=== PATIENT | female | born 1990 | race Caucasian/White ===

== ENCOUNTER 2018-02-28 21:39 | Emergency (ER) | payer SELFPAY ==
[2015-07-24 07:31] VITALS: BMI 31.0
[~2018-02-28 21:39] MED LIST: DOXYCYCLINE HY100 M2 PO; HYDROCODON-ACE1 EAC7 PO
== END 2018-02-28 23:10 | disposition home or self-care (01) ==
LOC: D.ER 21:39
DX: S40.012A Contusion of left shoulder, initial encounter (principal); W19.XXXA Unspecified fall, initial encounter; Y93.89 Activity, other specified; Y92.019 Unspecified place in single-family (private) house as the place of occurrence of the external cause; S43.402A Unspecified sprain of left shoulder joint, initial encounter; F17.200 Nicotine dependence, unspecified, uncomplicated

== ENCOUNTER 2018-03-04 19:21 | Emergency (ER) | payer SELFPAY ==
[~2018-03-04] VITALS: Ht 165.1 cm; Wt 77.3 kg
[2018-03-04 19:27] VITALS: BP 138/69; Ht 165.1 cm; Wt 77.3 kg
[2018-03-04] MEDS ORDERED: MUSCLE RELAXER (19:29)
== END 2018-03-04 21:20 | disposition home or self-care (01) ==
LOC: D.ER 19:21
DX: M25.512 Pain in left shoulder (principal); M54.5 Low back pain; Z91.81 History of falling

== ENCOUNTER 2018-12-16 00:25 | Emergency (ER) | payer SELFPAY ==
[~2018-12-16] VITALS: Ht 165.1 cm; Wt 75.0 kg
[~2018-12-16 00:25] MED LIST changes: +MUSCLE RELAXER
[2018-12-16 00:43] VITALS: BP 140/100; Ht 165.1 cm; Wt 75.0 kg
[2018-12-16] MEDS ORDERED: CELEXA10 MG PO (01:07)
== END 2018-12-16 01:18 | disposition home or self-care (01) ==
LOC: D.ER 00:25
DX: F32.9 Major depressive disorder, single episode, unspecified (principal)

== ENCOUNTER 2019-03-12 18:53 | Emergency (ER) | payer MEDICAID ==
[~2019-03-12] VITALS: Ht 165.1 cm; Wt 72.7 kg
[~2019-03-12 18:53] MED LIST changes: +CELEXA10 MG PO
[2019-03-12 18:57] VITALS: Ht 165.1 cm; Wt 72.7 kg
[2019-03-12 20:41] VITALS: BP 114/75
== END 2019-03-12 20:43 | disposition left against medical advice (07) ==
LOC: D.ER 18:53
DX: T82.9XXA Unspecified complication of cardiac and vascular prosthetic device, implant and graft, initial encounter (principal)

== ENCOUNTER 2019-03-14 00:01 | Inpatient (IN) | payer MEDICAID ==
[~2019-03-14] VITALS: Ht 165.1 cm; Wt 70.1 kg
[2019-03-14] VITALS (27 sets, daily range): BP systolic 84–147; BP diastolic 31–110; BMI 26.0
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
--- NOTE | 2019-03-14 00:06 | NUR ---
RG IN PLACE UPON ARRIVAL.
--- NOTE | 2019-03-14 00:09 | NUR ---
PT INTUBATED WITH SIZE 7 ETT 24 AT [facility] BY ADELINE VIVAR
[2019-03-14] MEDS ORDERED: CIPROFLOXACIN750 MG PO (00:31)
[2019-03-14] MEDS ORDERED: BUSPAR5 MG PO (00:31)
[2019-03-14] MEDS ORDERED: LOVENOX40 MG/0.4 SC (00:32)
[2019-03-14] MEDS ORDERED: NEURONTIN 300300 MG PO (00:32)
[2019-03-14] MEDS ORDERED: COLACE100 MG PO (00:32)
[2019-03-14] MEDS ORDERED: MIDODRINE HCL10 MG PO (00:33)
[2019-03-14] MEDS ORDERED: DAKIN'S 0.25%480 ML TOPICAL (00:35)
[2019-03-14] MEDS ORDERED: TRAZODONE HCL150 MG PO (00:35)
[2019-03-14] MEDS ORDERED: UNASYN (00:35)
[2019-03-14] MEDS ORDERED: CELEXA40 MG PO (00:36)
[2019-03-14 01:01] LABS: BASOPHILS 0.1 % (0-2); EOSINOPHILS 0.6 % (0-7); HEMATOCRIT 29.5 % (36.0-48.0); HEMOGLOBIN 9.3 g/dL (12-16); IMMATURE GRANULOCYTES 0.5 % (0-5); LYMPHOCYTES 12.5 % (15-50); MCH 24.3 pg (26.0-34.0); MCHC 31.5 g/dL (31.0-37.0); MCV 77.2 fL (80.0-100.0); MEAN PLATELET VOLUME 8.8 fL (7.4-10.4); MONOCYTES 2.8 % (2-11); NEUTROPHILS 83.5 % (40-80); PLATELET COUNT 576 10x3/uL (130-400); RBC 3.82 10x6/uL (4.00-5.40); RDW 15.4 % (11.5-14.5); WBC 19.1 10x3/uL (4.8-10.8)
[2019-03-14 01:05] LABS: APTT 31.6 SECONDS (22.8-39.4); INR 1.22 (0.85-1.17); PROTIME 14.9 SECONDS (11.6-15.0)
[2019-03-14 01:14] LABS: ALBUMIN 2.5 g/dL (3.4-5.0); ALKALINE PHOSPHATASE 91 U/L (46-116); ALT (SGPT) 30 U/L (10-68); BILIRUBIN - TOTAL 0.29 mg/dL (0.2-1.3); CALC OSMOLALITY 283 mosm/kg (275-300); CALCIUM 9.2 mg/dL (8.5-10.1); CARBON DIOXIDE 21.3 mmol/L (21.0-32.0); CHLORIDE - SERUM 104 mmol/L (98-107); CREATININE - SERUM 0.6 mg/dL (0.6-1.3); GLUCOSE 170 mg/dL (74-106); POTASSIUM - SERUM 4.3 mmol/L (3.5-5.1); PROTEIN - SERUM 7.7 g/dL (6.4-8.2); SODIUM 140 mmol/L (136-145); UREA NITROGEN 15 mg/dL (7-18); eGFR NON AFRICAN AMERICAN > 90 mL/min (90-120)
[2019-03-14 01:24] LABS: CREATINE KINASE 56 UL (21-215); TROPONIN-I < 0.017 ng/mL (0.000-0.060)
--- NOTE | 2019-03-14 01:55 | NUR ---
CALLED REPORT TO LONNIE DOMINGUEZ
[2019-03-14 02:49] LABS: APPEARANCE CLEAR (CLEAR); BILIRUBIN NEGATIVE (NEGATIVE); COLOR YELLOW (YELLOW); GLUCOSE NEGATIVE (NEGATIVE); KETONE NEGATIVE (NEGATIVE); NITRITE NEGATIVE (NEGATIVE); PROTEIN NEGATIVE (NEGATIVE); UROBILINOGEN NORMAL (NORMAL)
--- NOTE | 2019-03-14 03:10 | NUR ---
RECEIVED PT TO ROOM 2304 ACCOMPANIED BY ER STAFF AND RT X 2 , ICU MONITORS ESTABLISHED WITH ALARMS ON, HR SR ON CM, PT ABLE TO NOD HEAD TO YES/NO QUESTIONS, BILAT SOFT WRIST RESTRAINTS INTACT, 7.0 ETT 24 AT LIPLINE, 50% FIO2. WILL MONITOR.
--- NOTE | 2019-03-14 05:40 | NUR ---
NO VISITORS PRESENT AT THIS TIME, VSS, POSITIONED FOR COMFORT.
--- NOTE | 2019-03-14 07:00 | NUR ---
AWAKE ETT SECURE TO VENT. MOVING ARMS ALL OVER, TRYING TO TALK. NOT COOPERATIVE. PICC RIGHT UPPER ARM INFUSING WITH DIPRIVAN AT 15 MCG/KG/MIN. NS AT 100 ML HOUR. RG CATH CLEAR YELLOW URINE. FOOT DROP NOTED IN LOWER LEGS. FINGERS DRAWN UP, BUT MOVING ARMS UP AND DOWN AND TOWARD FACE. TRIED TO GIVEN EMOTIONAL SUPPORT TO CALM HER DOWN.REPOSITIONED, LEGS ELEVATED ON PILLOWS.
[2019-03-14] MEDS ORDERED: VITAMIN C WIT1000 MG PO (07:53)
[2019-03-14] MEDS ORDERED: ZINC-220220 MG PO (07:53)
--- NOTE | 2019-03-14 09:00 | NUR ---
MOTHER, BOYFRIEND, AND SISTER HERE, UPGIVEN AND HISTORY OBTAINED FROM MOTHER. MOTHER HAS TO TAKE CARE OF PATIENTS 3 CHILDREN. INCREASING DIPIRVAN TO TRY AND CALM PATIENT DOWN. STILL TRYING TO TALK MOVING ARMS UP AND DOWN AND GAGGING ON ETT. WILL CALM DOWN FOR VERY SHORT PERIODS OF TIME. MOTHER CRYING EMOTIONAL SUPPORT TO FAMILY. PATIENT WANTS TO GO HOME. MOTHER SAYS SHE CAN NOT COME HOME. SHE TRIED TWICE NOW TO BRING HER HOME. PATIENT RETURNED HOME ON FRIDAY FROM [facility], [place], [facility]. MOTHER AND SISTER WERE UNABLE TO USE PICC LINE AND GIVEN ABT. HOME HEALTH TO START ON FRIDAY. PATIENT REPOSITIONED. VERY ACTIVE WITH ARMS. CAN MOVE FINGERS OR LEGS.
--- NOTE | 2019-03-14 09:30 | NUR ---
TALKED WITH MOTHER ABOUT DNR, SHE HAS BEEN TALKED TO BEFORE ABOUT THIS, SHE TALKED WITH PATIENT ABOUT IT.
--- NOTE | 2019-03-14 11:00 | NUR ---
REPOSITIONED. DR. STEELE HERE ORDERS NOTED. STILL BECOME VERY ANXIOUS. HYPERACTIVE MOVING ARMS UP AND DOWN. WANTS TO GO HOME, WANTS TUBE OUT GAGGING ON TUBE. WHEN STIMULATED, WILL REST WITH ENCOURAGMENT AND LEFT ALONE.
--- NOTE | 2019-03-14 13:00 | NUR ---
DR. MICHEL HERE UPDATE GIVEN ON PATIENT. REPOSITIONED PATIENT AGAIN BECOMES VERY AGITATED, MOVING ARMS UP AND DOWN. TALKING WANTS TUBE OUT, WANTS TO GO HOME. DR. MICHEL EXPLAINED THAT WE NEED TO FIND OUT WHY SHE TURNED BLUE, NEEDS TO SOME TEST BEFORE ATTEMPTED WEANING AND REMOVING THE ETT. PATIENT JUST KEEPS MOVING CONTINOUSLY AND GAGGING ON TUBE. ORDERS RECEIVED FOR VERSE GTT TO CALM PATIENT DOWN.
--- NOTE | 2019-03-14 13:30 | NUR ---
WAITING ON VERSE GTT. PATIENT CONTINUES GETTING MORE AGITATED. DR. MICHEL ORDER VERSED 2 MG NOW.
--- NOTE | 2019-03-14 15:00 | NUR ---
COMPLETE HIBCLENS BATH GIVEN. WITH COMPLETE LINEN CHANGE. DRESSING CHANGE TO COCCYX. SMALL AMOUNT BROWN DRAINAGE NOTED ON DRESSING. WOUND PINK NO FOUL ODOR NOTED. WOUND CLEAN WITH NS. PACKED WITH KERLIX WITH NS ON 4X4 APPLIED. SECURE WITH TAPE. PATIENT TOLERATES POORLY. REPOSITIONED SUCTION. ORAL CARE DONE. BECOMES VERY AGITATED WHEN REPOSITIONE. INCREASED VERSE GTT.
--- NOTE | 2019-03-14 16:00 | NUR ---
BOYFRIEND HERE. PATIENT BECOMING AGITATED. KEEPS TRYING TO TALK HER THROAT IS SORE. INSTRUCTED TO QUIT TALKING. BOYFRIEND THINKS THIS HAPPEN BECAUSE PATIENT IS CURRENTLY SMOKING. VERSED INCREASED.
--- NOTE | 2019-03-14 17:22 | NUR ---
PATIENT RESTING CALMLY. PULMOCARE STARTED PER OG AT 10 ML HOUR WITH 100 ML WATER Q [address] MICHEL ORDERS. PLACEMENT CHECKED PRIOR TO STARTING TUBE FEEDING WITH AUDIBLE AIR IN ABD.
--- NOTE | 2019-03-14 19:00 | NUR ---
REPORT RECEIVED, CARE ASSUMED. PT IS RESTING IN BED INTUBATED AND SEDATED. INITIAL ASSESSMENT COMPLETED, SEE FLOWSHEET FOR DETAILS. PT REPOSITIONED FOR COMFORT. ORAL CARE PREFORMED. NO SIGNS OF ACUTE DISTRESS. WILL CONTINUE TO MONITOR.
--- NOTE | 2019-03-14 21:00 | NUR ---
PT IS RESTING IN BED INTUBATED AND SEDATED. PT REPOSITIONED FOR COMFORT, ORAL CARE PREFORMED. NO SIGNS OF ACUTE DISTRESS. WILL CONTINUE TO MONITOR.
--- NOTE | 2019-03-14 23:00 | NUR ---
REASSESSMENT COMPLETED, SEE FLOWSHEET FOR DETAILS. PT IS RESTING IN BED INTUBATED AND SEDATED. PT REPOSITIONED FOR COMFORT. ORAL CARE PREFORMED. NO SIGNS OF ACUTE DISTRESS. WILL CONTINUE TO MONITOR.
[2019-03-15] VITALS (24 sets, daily range): BP systolic 113–146; BP diastolic 71–95; Ht 165.1 cm; Wt 70.1 kg
--- NOTE | 2019-03-15 01:00 | NUR ---
PT IS LAYING IN BED INTUBATED AND SEDATED. PT REPOSITIONED FOR COMFORT. ORAL CARE PREFORMED. NO SIGNS OF ACUTE DISTRESS. WILL CONTINUE TO MONITOR.
--- NOTE | 2019-03-15 03:00 | NUR ---
REASSESSMENT COMPLETED, SEE FLOWSHEET FOR DETAILS. PT IS LAYING IN BED INTUBATED AND SEDATED. PT REPOSITIONED FOR COMFORT. ORAL CARE PERFORMED. NO FURTHER NEEDS NOTED AT THIS TIME. NO SIGNS OF ACUTE DISTRESS. WILL CONTINUE TO MONITOR.
[2019-03-15 04:14] LABS: BASOPHILS 0 % (0-2); EOSINOPHILS 0 % (0-7); HEMATOCRIT 26.6 % (36.0-48.0); HEMOGLOBIN 8.3 g/dL (12-16); IMMATURE GRANULOCYTES 0.4 % (0-5); LYMPHOCYTES 14.3 % (15-50); MCH 24.3 pg (26.0-34.0); MCHC 31.2 g/dL (31.0-37.0); MCV 77.8 fL (80.0-100.0); MEAN PLATELET VOLUME 8.8 fL (7.4-10.4); MONOCYTES 4.6 % (2-11); NEUTROPHILS 80.7 % (40-80); PLATELET COUNT 518 10x3/uL (130-400); RBC 3.42 10x6/uL (4.00-5.40); RDW 15.1 % (11.5-14.5)
[2019-03-15 04:21] LABS: WBC 11.4 10x3/uL (4.8-10.8)
[2019-03-15 04:39] LABS: ALBUMIN 2.4 g/dL (3.4-5.0); ALKALINE PHOSPHATASE 72 U/L (46-116); ALT (SGPT) 23 U/L (10-68); BILIRUBIN - TOTAL 0.22 mg/dL (0.2-1.3); C-REACTIVE PROTEIN 5.2 mg/dL (0.0-0.9); CALC OSMOLALITY 280 mosm/kg (275-300); CALCIUM 9.1 mg/dL (8.5-10.1); CARBON DIOXIDE 23.9 mmol/L (21.0-32.0); CHLORIDE - SERUM 105 mmol/L (98-107); GLUCOSE 136 mg/dL (74-106); POTASSIUM - SERUM 3.8 mmol/L (3.5-5.1); PROTEIN - SERUM 7.3 g/dL (6.4-8.2); SODIUM 139 mmol/L (136-145); UREA NITROGEN 14 mg/dL (7-18)
[2019-03-15 04:52] LABS: CREATININE - SERUM 0.3 mg/dL (0.6-1.3); eGFR NON AFRICAN AMERICAN > 90 mL/min (90-120)
--- NOTE | 2019-03-15 05:00 | NUR ---
PT IS RESTING IN BED INTUBATED AND SEDATED. PT REPOSITIONED FOR COMFORT. ORAL CARE PREFORMED. NO SIGNS OF ACUTE DISTRESS. WILL CONTINUE TO MONITOR.
--- NOTE | 2019-03-15 07:00 | NUR ---
PT RESTING IN BED C CALL URIBE IN REACH. SEDATED ON DIPRIVAN AND VERSED. WAKES TO VOICE. ON VENTILATOR PER ORDERED SETTINGS. RESTRAINTS IN PLACE. SCAR TO LEFT HIP AND LEFT FOOT. OLD TRACHE SCAR. COLOSTOMY BAG IN PLACE. TUBE FEED THROUGH OGT INFUSING AT 30 ML/HR. NS AT 100ML/HR. ALL IV FLUID GOING THROUGH RIGHT PICC LINE. HR 42 SINUS ADWOA. BP STABLE. VSS. TURNED TO LEFT SIDE. WILL CONTINUE TO MONITOR
--- NOTE | 2019-03-15 08:29 | NUR ---
NURSE ASPIRATED 240 CC TUBEFEED AND WATER FROM OGT. DISPOSED OF IN SINK. AUSCULTATED FOR PLACEMENT VERIFICATION. ADMINISTERED PO MEDS DOWN OGT AND TURNED OFF FEED.
--- NOTE | 2019-03-15 09:00 | NUR ---
TURNED OFF SEDATION PER ORDERS BY DR. WOO. MONITORING PATIENT. VSS
--- NOTE | 2019-03-15 11:00 | NUR ---
PT AGITATED ON VENT IWTH NO SEDATION PER ORDERS. TRIED CALMING PATIENT VERBALLY AND EXPLAINED PLAN TO POSSIBLY EXTUBATE TODAY
--- NOTE | 2019-03-15 13:00 | NUR ---
PT ON PRESSURE SUPPORT TRIALS OFF SEDATION. VSS
[2019-03-15 13:59] LABS: % SATURATION 12 % (15-55); IRON 37 ug/dl (35-150); TOTAL IRON BIND CAPACITY 287 ug/dl (260-445); UNSAT IRON BIND CAPACITY 250 ug/dl (150-375)
--- NOTE | 2019-03-15 15:08 | NUR ---
GAVE PATIENT FULL BED BATH AND CHANGED SACRAL WOUND WITH WOUND CARE NURSE. ALSO CHANGED OUT COLOSTOMY BAG FECES WERE DRAINING UNDER ADHESIVE TO SKIN. PT VERY AGITATED WITHOUT SEDATION ON VENTILATOR. RT STARTED PRESSURE SUPPORT EXTUBATION TESTS WHEN BATH WAS FINISHED. ALL LINENS WERE CHANGED
--- NOTE | 2019-03-15 15:32 | NUR ---
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 Kerlix moistened with saline was packed loosely in wound. It was covered with dry 4x4s and ABD pad and secured with medipore tape. Right knee has a scabbed area measuring 2cm x 2cm. This was left open to air. Pt is on an air overlay mattress. She is being turned/repositioned q 2 hours using wedges for support. Wound care will continue monitoring.
--- NOTE | 2019-03-15 16:08 | NUR ---
PT EXTUBATED AT THIS TIME. PLACED ON NC AT 2L. O2 SAT 96%. PERFORMED ORAL CARE. PT IS HOARSE AND EMOTIONAL. FAMILY IN ROOM
--- NOTE | 2019-03-15 16:15 | NUR ---
EXTUBATED TO 4L NASAL CANNULA SPO2 96%
--- NOTE | 2019-03-15 17:00 | NUR ---
RNANKIT DID BED SIDE SWALLOW EVAL WITH APPLE SAUCE AND PUDDING. PT TOLERATED WELL.
--- NOTE | 2019-03-15 19:00 | NUR ---
REPORT RECEIVED, CARE ASSUMED. PT IS LAYING IN BED AT THIS TIME WATCHING TV. INITIAL ASSESMENT COMPLETED, SEE FLOWSHEET FOR DETAILS. PT STATES THAT SHE HAS BAD ANXIETY ATTACKS AND THAT IS WHAT CAUSES HER TO HAVE ISSUES WITH BREATHING CAUSING HER TO BE INTUBATED. PAGED APOLINAR DEL TORO REGARDING THIS ISSUE AND REQUESTED SOMETHING TO GIVE HER IN THE CASE OF AN ACUTE ATTACK. ORDERS RECEIVED. PT REPOSITIONED FOR COMFORT. NO FURTHER NEEDS NOTED. WILL CONTINUE TO MONITOR.
--- NOTE | 2019-03-15 21:00 | NUR ---
PT IS RESTING IN BED WITH FAMILY AT BEDSIDE. PT REPOSITIONED FOR COMFORT. NO SIGNS OF ACUTE DISTRESS NOTED. WILL CONTINUE TO MONITOR.
--- NOTE | 2019-03-15 23:00 | NUR ---
REASSESSMENT COMPLETED, SEE FLOWSHEET FOR DETAILS. PT IS RESTING IN BED. PT REPOSITIONED FOR COMFORT. NO SIGNS OF ACUTE DISTRESS NOTED. WILL CONTINUE TO MONITOR.
[2019-03-16] VITALS (14 sets, daily range): BP systolic 73–175; BP diastolic 34–95
--- NOTE | 2019-03-16 01:00 | NUR ---
PT IS RESTING IN BED WITH EYES OPEN WATCHING TV. PT REPOSITIONED FOR COMFORT. NO SIGNS OF ACUTE DISTRESS NOTED. WILL CONTINUE TO MONITOR.
--- NOTE | 2019-03-16 03:00 | NUR ---
REASSESSMENT COMPLETED, SEE FLOWSHEET FOR DETAILS. PT IS RESTING IN BED WITH EYES CLOSED AT THIS TIME. PT REPOSITIONED FOR COMFORT. NO SIGNS OF ACUTE DISTRESS. WILL CONTINUE TO MONITOR.
--- NOTE | 2019-03-16 05:00 | NUR ---
PT IS RESTING IN BED WATCHING TV AT THIS TIME. NO SIGNS OF ACUTE DISTRESS. REPOSITIONED PT FOR COMFORT. WILL CONTINUE TO MONITOR.
--- NOTE | 2019-03-16 07:20 | NUR ---
RECEIVED PT. PT AWAKE AND VISIBLE ANXIETY. BREATHING QUICKLY. RATES 30-40S. RT IN WITH PT NOW. XANAX GIVEN AROUND 0500. PT HAS RG, COLOSTOMY, AND RIGHT PICC. SHE WEARS O2 AT 2L WHEN SHE NEEDS IT. 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 IS ABLE TO MOVE ARMS. PT HAS A PRESSURE ULCER TO HIS COCCYX. WILL CONTINUE TO MONITOR.
--- NOTE | 2019-03-16 08:27 | NUR ---
RESP RATE HAS DECREASED TO 20S. HR HAS COME DOWN TO 70S-80S. PT IS NO LONGER HAVING A "PANIC ATTACK." WILL CONTINUE TO MONITOR.
--- NOTE | 2019-03-16 09:45 | NUR ---
PT HAS TRANSFER ORDERS FOR THE FLOOR. ASKED DR BANDA TO RESTART HER HOME MEDS TO HELP WITH HER ANXIETY. PT HAS NO OTHER QUESTIONS OR NEEDS AT THIS TIME.
--- NOTE | 2019-03-16 11:27 | NUR ---
PT RESTING QUIETLY. VSS. WILL CONTINUE TO MONITOR.
--- NOTE | 2019-03-16 12:51 | MORECARE ---
CASE MANAGEMENT DISCHARGE SUMMARY PATIENT: DYLAN MCKENZIE UNIT: [id number] ADM DATE: 03/14/19 AGE: 28 : [birth year] SEX: F ROOM/BED: D.2304 AUTHOR: DOUG MOSQUERA PHYSICIAN: REFERRING PHYSICIAN: ANDERSON STEELE MD DATE OF SERVICE: 03/16/19 Discharge Plan Patient Name: DYLAN MCKENZIE Facility: [facility]:[place] : 1990 Planned Disposition: Home with Infusion Therapy Services Anticipated Discharge Date: Discharge Date: Expected LOS: Initial Reviewer: [email or web address] Initial Review Date: 03/16/2019 Generated: 03/16/19 1:51 pm DCP- Discharge Planning Updated by [email or web address]: Lakeshia Quinones on 03/14/19 2:[address] CASE MANAGEMENT CONSULT OBTAINED. THE PATIENT IS INTUBATED, ON VENTILATOR AND SEDATED. WILL BE STARTING A VERSED DRIP FOR ACUTE AGITATION. IVAB, IV STEROIDS, DUONEDS. MOTHER TO THE PATIENT HAD BEEN AT THE BEDSIDE. PATIENT HAS 3 CHILDREN AGES 5, 9, 10 YEARS OLD. TODAY IS THE 5 YEAR OLD'S BIRTHDAY. PATIENT JUST DISCHARGED HOME FROM [facility] FRIDAY. HOME HEALTH HAD BEEN ARRANGED. MOTHER TO THE PATIENT STATES THEY HAVE TRIED TO HAVE THE PATIENT HOME 2 TIMES. STATES SHE CANNOT RETURN TO THE HOME SETTING. CM WILL FOLLOW TO ASSIST. Patient Name: DYLAN MCKENZIE Page [id number] at 1251 All edits/amendments must be made on the electronic document DICTATION DATE: 03/16/19 1251 HUMAN SERVICES MANAGER: SRAVAN 03/16/19 1251 RPT#: [id number] DC DATE: STATUS: ADM IN [facility] [address] [place] [address] END OF REPORT
--- NOTE | 2019-03-16 13:00 | MORECARE ---
CASE MANAGEMENT DISCHARGE SUMMARY PATIENT: DYLAN DEMPSEY UNIT: [id number] ADM DATE: 03/14/19 AGE: 28 : [birth year] SEX: F ROOM/BED: D.2304 AUTHOR: DOUG MOSQUERA PHYSICIAN: REFERRING PHYSICIAN: ANDERSON STEELE MD DATE OF SERVICE: 03/16/19 Discharge Plan Patient Name: DYLAN DEMPSEY Facility: [facility]:[place] : 1990 Planned Disposition: Home with Infusion Therapy Services Anticipated Discharge Date: Discharge Date: Expected LOS: Initial Reviewer: [email or web address] Initial Review Date: 03/16/2019 Generated: 03/16/19 2:00 pm DCP- Discharge Planning Updated by [email or web address]: Lakeshia Quinones on 03/14/19 2:[address] CASE MANAGEMENT CONSULT OBTAINED. THE PATIENT IS INTUBATED, ON VENTILATOR AND SEDATED. WILL BE STARTING A VERSED DRIP FOR ACUTE AGITATION. IVAB, IV STEROIDS, DUONEDS. MOTHER TO THE PATIENT HAD BEEN AT THE BEDSIDE. PATIENT HAS 3 CHILDREN AGES 5, 9, 10 YEARS OLD. TODAY IS THE 5 YEAR OLD'S BIRTHDAY. PATIENT JUST DISCHARGED HOME FROM THE [facility] FRIDAY. HOME HEALTH HAD BEEN ARRANGED. MOTHER TO THE PATIENT STATES THEY HAVE TRIED TO HAVE THE PATIENT HOME 2 TIMES. STATES SHE CANNOT RETURN TO THE HOME SETTING. CM WILL FOLLOW TO ASSIST. DCPIA - Discharge Planning Initial Assessment Updated by [email or web address]: Lluvia Fitch on 03/16/19 12:53 pm * Is the patient Alert and Oriented? Yes * How many steps to enter\exit or inside your home? * PCP [place] * Pharmacy [facility] * Preadmission Environment Home with Family * ADLs Total Dependent * Other Equipment Hospital Bed, miranda lift, manual w/c, nebulizer (no updraft medications), should have electric wheelchair in 3 months, shower chair * List name and contact numbers for known caregivers / representatives who currently or will assist patient after discharge: Nancy Dempsey - mother- [phone] * Verbal permission to speak to the caregivers and representatives has been obtained from the patient. Yes * Community resources currently utilized Home Health * Please name any agencies selected above. [facility] was to admit 03/15 - [phone] [facility] [phone] * Additional services required to return to the preadmission environment? No * Can the patient safely return to the preadmission environment? Yes * Has this patient been hospitalized within the prior 30 days at any hospital? Yes Last DP export: 03/16/19 11:51 a Patient Name: DYLAN DEMPSEY Page 61083 at 1300 All edits/amendments must be made on the electronic document DICTATION DATE: 03/16/19 1300 CAD DEVELOPER: SRAVAN 03/16/19 1300 RPT#: [id number] DC DATE: STATUS: ADM IN [facility] [address] [place] [address] END OF REPORT
--- NOTE | 2019-03-16 13:30 | NUR ---
NO CHANGES IN PT STATUS. TRANSFER ORDERS. VSS. PT REQUESTED FAN. GOT ONE. NOW RESTING QUIETLY. WILL CONTINUE TO MONITOR.
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
--- NOTE | 2019-03-16 15:40 | NUR ---
PT SLEEPING. VSS. PT REPOSITIONED. RG IN PLACE. COLOSTOMY IN PLACE.
[2019-03-16 16:09] LABS: FOLATE (FOLIC ACID) - SERUM >20.0 ng/mL (>3.0)
--- NOTE | 2019-03-16 16:31 | NUR ---
REPORT CALLED TO ALBERTO OVIEDO, ON MED 3. TO GO TO ROOM 1208.
--- NOTE | 2019-03-16 17:38 | NUR ---
TRANSFERED TO ROOM 210 FROM ICU. ALERT AND ORIENTED. HANDS CONTRACTED. CAN'T MOVE LEGS. CL IN REACH. R PICC. COLOSTOMY. WOUND TO COCCYX WITH WET TO DRY DRESSING PER NURSE REPORTED.
--- NOTE | 2019-03-16 19:25 | NUR ---
REPORT RECIEVED AND ROUNDING COMPLETE. PT LAYING IN BED IN SUPINE POSITION WITHT HE HEAD OF HER BE ELEVATED. PT IS ON ROOM AIR, PT HAS NO S/SX OF DISTRESS AT THIS TIME. PT DID ASK ABOUT DRESSING CHANGES FOR HER SORE ON HER COCCYX.I TOLD HER I WILL CHECK HER CHART AND WE CAN GO FROM THERE. PT STATES SHE HAS NO OTHER NEEDS AT THIS TIME. CALL LIGHT WITHIN REACH AND BED IN LOWEST POSITION.
--- NOTE | 2019-03-16 21:00 | NUR ---
CLOTH MEASURER REPORTED PT'S B/P WAS LOW. CHARGE NURSE KO DOMINGUEZ CHECKED MANNUALLY AND REPORTED 78/28. CALLED KATEY JIANG AND INFORMED HIM OF WHAT WAS GOING ON HE SAID TO GIVE HER A 500CC BOLUS AND HE WOULD COME AND SEE HER.
--- NOTE | 2019-03-16 21:30 | NUR ---
LAB CALLED AND REPORTED PT'S K+ WAS 2.3 PUT IN CALL TO KATEY COOK FOR INSTRUCTIONS BECAUSE PT IS NOT ON ELECTROLYTE PROTOCOL.
[2019-03-16 21:44] LABS: BASOPHILS 0.1 % (0-2); EOSINOPHILS 0.1 % (0-7); HEMATOCRIT 29.9 % (36.0-48.0); HEMOGLOBIN 9.2 g/dL (12-16); IMMATURE GRANULOCYTES 0.5 % (0-5); LYMPHOCYTES 26.3 % (15-50); MCH 23.8 pg (26.0-34.0); MCHC 30.8 g/dL (31.0-37.0); MCV 77.3 fL (80.0-100.0); MEAN PLATELET VOLUME 8.9 fL (7.4-10.4); PLATELET COUNT 466 10x3/uL (130-400); RBC 3.87 10x6/uL (4.00-5.40); RDW 15.6 % (11.5-14.5)
[2019-03-16 21:47] LABS: WBC 14.4 10x3/uL (4.8-10.8)
[2019-03-16 21:57] LABS: CARBON DIOXIDE 21.3 mmol/L (21.0-32.0); CHLORIDE - SERUM 109 mmol/L (98-107); GLUCOSE 143 mg/dL (74-106); MAGNESIUM - SERUM 1.7 mg/dL (1.8-2.4); PHOSPHOROUS 2.6 mg/dL (2.5-4.9); SODIUM 144 mmol/L (136-145)
[2019-03-16 21:59] LABS: CALC OSMOLALITY 292 mosm/kg (275-300); CREATININE - SERUM 0.5 mg/dL (0.6-1.3); UREA NITROGEN 23 mg/dL (7-18); eGFR NON AFRICAN AMERICAN > 90 mL/min (90-120)
[2019-03-16 22:01] LABS: POTASSIUM - SERUM 2.3 mmol/L (3.5-5.1)
[2019-03-17] VITALS: BP 126/48
--- NOTE | 2019-03-17 00:32 | NUR ---
I have reviewed this patient and I concur with the Shift Assessment completed by the Licensed Practical Nurse today this shift.
[2019-03-17 04:00] VITALS: BP 112/74
[2019-03-17 08:30] VITALS: BP 120/52
[2019-03-17 12:18] VITALS: BP 138/92
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
== END 2019-03-17 15:53 | disposition home health service (06) | DRG 208 ==
LOC: D.ER 00:01 → D.ICU 01:32 → D.M3 03-16 17:03
PROVIDERS: Emergency Medicine; Internal Medicine Nephrology; ADMIT Family Medicine; ATTEND Family Medicine
PROC: 5A1945Z Respiratory Ventilation, 24-96 Consecutive Hours (ICD-10-PCS; principal; 2019-03-14)
PROC: 0BH17EZ Insertion of Endotracheal Airway into Trachea, Via Natural or Artificial Opening (ICD-10-PCS; 2019-03-14)
DX: J18.9 Pneumonia, unspecified organism (principal); J96.01 Acute respiratory failure with hypoxia; L89.154 Pressure ulcer of sacral region, stage 4; J44.1 Chronic obstructive pulmonary disease with (acute) exacerbation; G82.20 Paraplegia, unspecified; N39.0 Urinary tract infection, site not specified; R91.1 Solitary pulmonary nodule; F17.200 Nicotine dependence, unspecified, uncomplicated; D72.829 Elevated white blood cell count, unspecified; D50.9 Iron deficiency anemia, unspecified; R73.9 Hyperglycemia, unspecified; R00.0 Tachycardia, unspecified; N31.9 Neuromuscular dysfunction of bladder, unspecified

== ENCOUNTER 2019-03-29 07:56 | Inpatient (IN) | payer MEDICAID ==
[~2019-03-29] VITALS: Ht 165.1 cm; Wt 77.5 kg
[2019-03-29] VITALS (8 sets, daily range): BP systolic 115–187; BP diastolic 55–95; BMI 28.3
[~2019-03-29 07:56] MED LIST changes: +BUSPAR5 MG PO; +CELEXA40 MG PO; +CIPROFLOXACIN750 MG PO; +COLACE100 MG PO; +DAKIN'S 0.25%480 ML TOPICAL; +LOVENOX40 MG/0.4 SC; +MIDODRINE HCL10 MG PO; +NEURONTIN 300300 MG PO; +TRAZODONE HCL150 MG PO; +UNASYN; +VITAMIN C WIT1000 MG PO; +ZINC-220220 MG PO
--- NOTE | 2019-03-29 08:21 | NUR ---
SL PICC LINE CARLOTA WILL NOT ASPIRATE. DR CHIQUIS RUIZ. PCXR ORDERED TO CONFIRM PLACEMENT
[2019-03-29] MEDS ORDERED: MULTI-DAY VITAM1 TAB PO (08:33)
[2019-03-29 08:34] LABS: BASOPHILS 0.1 % (0-2); EOSINOPHILS 1.7 % (0-7); HEMATOCRIT 30.9 % (36.0-48.0); HEMOGLOBIN 9.6 g/dL (12-16); IMMATURE GRANULOCYTES 0.2 % (0-5); LYMPHOCYTES 18.8 % (15-50); MCH 23.8 pg (26.0-34.0); MCHC 31.1 g/dL (31.0-37.0); MCV 76.5 fL (80.0-100.0); MEAN PLATELET VOLUME 8.7 fL (7.4-10.4); MONOCYTES 6.7 % (2-11); NEUTROPHILS 72.5 % (40-80); PLATELET COUNT 380 10x3/uL (130-400); RBC 4.04 10x6/uL (4.00-5.40); RDW 16.1 % (11.5-14.5); WBC 13.4 10x3/uL (4.8-10.8)
[2019-03-29 08:43] LABS: APTT 37.2 SECONDS (22.8-39.4); INR 1.19 (0.85-1.17); PROTIME 14.6 SECONDS (11.6-15.0)
[2019-03-29 08:45] LABS: ALBUMIN 2.4 g/dL (3.4-5.0); ALKALINE PHOSPHATASE 71 U/L (46-116); ALT (SGPT) 30 U/L (10-68); BILIRUBIN - TOTAL 0.19 mg/dL (0.2-1.3); CALC OSMOLALITY 283 mosm/kg (275-300); CALCIUM 9.8 mg/dL (8.5-10.1); CARBON DIOXIDE 25.4 mmol/L (21.0-32.0); CHLORIDE - SERUM 106 mmol/L (98-107); CREATININE - SERUM 0.3 mg/dL (0.6-1.3); GLUCOSE 97 mg/dL (74-106); POTASSIUM - SERUM 3.2 mmol/L (3.5-5.1); SODIUM 143 mmol/L (136-145); UREA NITROGEN 11 mg/dL (7-18); eGFR NON AFRICAN AMERICAN > 90 mL/min (90-120)
--- NOTE | 2019-03-29 08:45 | NUR ---
PCXR VIEWED BY GANGA LIM TO USE CARLOTA PICC LINE
--- NOTE | 2019-03-29 08:45 | NUR ---
URINE SPECIMEN OBTAINED, LABELED AT BS AND SENT TO LAB
--- NOTE | 2019-03-29 08:49 | NUR ---
RG BAG EMPTIED OF 400ML DARK BROWN URINE WITH LARGE AMTS OF SEDIMENTS
--- NOTE | 2019-03-29 08:49 | NUR ---
RT AT BS FOR SVN
--- NOTE | 2019-03-29 08:57 | NUR ---
PT HAS HEEL PROTECTORS ON BLE. SKIN INTACT ON BILAT FEET. PT HAS DRSG TO SACRUM AREA D/I REFUSES TO CHANGE "I HAVE A STAGE 4 DECUB AND MY HH NURSE JUST CHANGED IT YESTERDAY" PT HAS DRSG TO LEFT ELBOW REOVED AND NOTED SCABBED AREA NO S/SX OF INFECTION "ITS FROM MY W/C" DRSG REPLACED
[2019-03-29 08:58] LABS: CKMB 5.7 U/L (0.0-3.6); CREATINE KINASE 49 UL (21-215); PRO BNP 449 pg/mL (0-125); TROPONIN-I < 0.017 ng/mL (0.000-0.060)
--- NOTE | 2019-03-29 09:00 | NUR ---
DISCUSSED WITH PT RE REPOSITIONING AND RATIONALE. "I ONLY PUT A PILLOW UNDER MY BUTT. I CAN'T LIE ON MY SIDE" REPOSITIONED WITH PILLOW UNDER RIGHT BUTTOCKS
[2019-03-29 09:07] LABS: APPEARANCE TURBID (CLEAR); BACTERIA MANY /hpf (NONE SEEN); BILIRUBIN NEGATIVE (NEGATIVE); CALCIUM OXALATE CRYSTALS OCC /hpf (NONE SEEN); COLOR DK YELLOW (YELLOW); EPITHELIAL CELLS 0-5 /hpf (0-5); GLUCOSE NEGATIVE (NEGATIVE); KETONE MODERATE mg/dL (NEGATIVE); MUCUS <1+ /lpf (NONE SEEN); NITRITE NEGATIVE (NEGATIVE); PROTEIN 2+ mg/dL (NEGATIVE); RED CELLS - URINE 25-50 /hpf (0-5); SPECIFIC GRAVITY 1.025 (1.005-1.020); UROBILINOGEN NORMAL (NORMAL); WHITE CELLS - URINE >50 /hpf (0-5); YEAST >1+ WITH HYPHAE /hpf (NONE SEEN)
--- NOTE | 2019-03-29 10:05 | NUR ---
LAB AT BS [facility] DRAWN
--- NOTE | 2019-03-29 10:33 | NUR ---
TO CT VIA STRETCHER WITH BATHHOUSE KEEPER
--- NOTE | 2019-03-29 12:07 | NUR ---
ATTEMPTED TO CALL REPORT, NURSE UNAVAILABLE
--- NOTE | 2019-03-29 13:49 | NUR ---
REPORT CALLED TO ALBERTO RODRIGUEZ BY SBAR FORMAT
--- NOTE | 2019-03-29 14:00 | NUR ---
TRANSPORTED TO ROOM #2233 CONDITION STABLE. CARLOTA PICC LINE INTACT/SL'D
[2019-03-29 17:18] LABS: % SATURATION 6 % (15-55); IRON 15 ug/dl (35-150); TOTAL IRON BIND CAPACITY 215 ug/dl (260-445); UNSAT IRON BIND CAPACITY 200 ug/dl (150-375)
[2019-03-29 17:31] LABS: FERRITIN 130 ng/mL (3-244); LDH 248 U/L (81-234)
--- NOTE | 2019-03-29 18:05 | NUR ---
RECEIVED CALL FROM LAB THAT PT D-DIMER IS 1.91. CALLED DR BANDA AND ADVISED. HE STATED PT CT CLEAR AND OK
--- NOTE | 2019-03-29 19:35 | NUR ---
AROUSES AND ACKNOWLEDGES QUESTIONS LUNGS ARE VERY COURSE O2 AT 10 L... SKIN IS WARM AND DRY PT REFUSES ME TO TURN AND EXAMINE WOUND TO BACK REPORTED SACRAEL BONE EXPOSED. PIC LINE TO RT ARM IS SALINE LOCKED...BOY FRIEND IS WITH PATIENT PT UNABLE TO MOVE ANY LIMBS I WILL ATTEMPT BETTER EXAM LATER
--- NOTE | 2019-03-29 21:15 | NUR ---
ABLE TO TAKE AND SWALLOW MEDS WITH NO DIFFICULTY
--- NOTE | 2019-03-29 21:48 | NUR ---
PT RESTING WITH EYES CLOSED I HAVE ENTERED ROOM OFTEN AND EACH TIME HAD TO AROUSE PT
[2019-03-30] VITALS (9 sets, daily range): BP systolic 97–138; BP diastolic 45–68; Ht 165.1 cm; Wt 77.5 kg
--- NOTE | 2019-03-30 00:50 | NUR ---
I have reviewed this patient and I concur with the Shift Assessment completed by the Licensed Practical Nurse today this shift.
[2019-03-30 05:48] LABS: BASOPHILS 0.1 % (0-2); EOSINOPHILS 1.8 % (0-7); HEMOGLOBIN 9.4 g/dL (12-16); IMMATURE GRANULOCYTES 0.3 % (0-5); MCH 23.7 pg (26.0-34.0); MCHC 31.3 g/dL (31.0-37.0); MCV 75.6 fL (80.0-100.0); MONOCYTES 7.4 % (2-11); NEUTROPHILS 67.4 % (40-80); PLATELET COUNT 397 10x3/uL (130-400); RBC 3.97 10x6/uL (4.00-5.40); RDW 16.6 % (11.5-14.5); WBC 12.9 10x3/uL (4.8-10.8)
[2019-03-30 06:03] LABS: CALC OSMOLALITY 279 mosm/kg (275-300); CALCIUM 8.8 mg/dL (8.5-10.1); CARBON DIOXIDE 26.3 mmol/L (21.0-32.0); CHLORIDE - SERUM 105 mmol/L (98-107); CREATININE - SERUM 0.5 mg/dL (0.6-1.3); GLUCOSE 92 mg/dL (74-106); POTASSIUM - SERUM 3.6 mmol/L (3.5-5.1); SODIUM 141 mmol/L (136-145); UREA NITROGEN 10 mg/dL (7-18); eGFR NON AFRICAN AMERICAN > 90 mL/min (90-120)
--- NOTE | 2019-03-30 07:05 | NUR ---
PT RESTING IN BED, EYES CLOSED. AROUSES TO VOICE. AT BEDSIDE. ALERT AND ORIENTED. PT QUADRIPELGIC, WOUND TO SACRAL AREA. DRESSING INTACT. RG CATHETER. COLOSTOMY TO LLQ. ON ELECTROLYTE PROTOCOL. ON 10L O2, HIGHFLOW NC. PT ON TELEMETRY 99 SR. PICC TO RIGHT UPPER ARM, SL. SITE PATENT WITHOUT REDNESS OR SWELLING. PT DENIES ANYTHING FURHTER AT THIS TIME. CALL LIGHT IN REACH. WILL CONTINUE TO MONITOR.
--- NOTE | 2019-03-30 11:20 | NUR ---
PT ALLOWED DRESSING TO SACRAL AREA TO BE CHANGED. REMOVED PREVIOUS DRESSING, PACKED WOUND WITH KERLIX MOISTENED WITH SALINE, COVERED WITH 4X4 GAUZE, AND APPLIED ABD PAD, SECURED WITH MEDIPORE TAPE. PT REFUSED SPECIALTY BED. STATED "I AM LEAVING TOMORROW. NO NEED FOR IT."
--- NOTE | 2019-03-30 14:19 | NUR ---
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 The sacral bone is exposed. Currently wet to dry dressing using saline is being done daily. She has refused the air overlay mattress. Wound care will continue monitoring.
--- NOTE | 2019-03-30 15:23 | NUR ---
RAPID RESPONSE CALLED AT 1502. PT C/O SOB AND USE OF ACCESSORY MUSCLE WAS OBSERVED. PT STRUGGLED TO BREATHE. O2 SATURATION 84% ON 10L O2. ADJUSTED O2 TO MAX >15L. DR. BANDA ARRIVED IN PT ROOM 1508, ORDERED ABG AND CHEST XRAY STAT. PT ALERT AND TALKING TO STAFF. RESPIRATORY SUCTIONED PT. PT ANXIOUS AND REFUSING SOME CARE.
--- NOTE | 2019-03-30 15:34 | NUR ---
PHYSICIAN WANTING TO SEND PT TO ICU, PT IS REFUSING TO GO TO ICU. STATED "I WOULD RATHER GO HOME AND THAN GO TO ICU." REPORTED TO CHARGE NURSE, CHARGE NURSE CALLED DRUM STOCK CLERK.
--- NOTE | 2019-03-30 15:39 | NUR ---
I have reviewed this patient and I concur with the Shift Assessment completed by the Licensed Practical Nurse today this shift.
--- NOTE | 2019-03-30 16:47 | NUR ---
DR. BOX CONSULTED PER UX DESIGN LEAD REGARDING PT'S MENTAL CAPABILITY OF MAKING HER OWN DECISIONS. DR. BOX STATED " PT IS MENTALLY STABLE TO MAKE HER OWN DECISIONS AT THIS TIME." PT'S BEHAVIOR AND ASSESSMENT RESULTS REPORTED TO DR. BOX. DR. BOX STATED TO GIVE RESOURCES TO PT AT TIME OF DISCHARGE. NO FURTHER ORDERS AT THIS TIME. RESOURCES REVIEWED WITH PT AND SHE VERBALIZED UNDERSTANDING.
--- NOTE | 2019-03-30 16:51 | NUR ---
OT NOTE: PT REQUIRED TOTAL A WITH FEEDING. THANK YOU, MARIA C CHAVES
--- NOTE | 2019-03-30 17:18 | MORECARE ---
CASE MANAGEMENT DISCHARGE SUMMARY PATIENT: DYLAN MCKENZIE UNIT: [id number] ADM DATE: 03/29/19 AGE: 28 : [birth year] SEX: F ROOM/BED: D.[facility]3 AUTHOR: DOUG MOSQUERA PHYSICIAN: REFERRING PHYSICIAN: CHAY BANDA MD DATE OF SERVICE: 03/30/19 Discharge Plan Patient Name: DYLAN MCKENZIE Facility: [facility]:[place] : 1990 Planned Disposition: Home with Home Health Anticipated Discharge Date: Discharge Date: Expected LOS: Initial Reviewer: [email or web address] Initial Review Date: 03/30/2019 Generated: 03/30/19 6:17 pm Patient Name: DYLAN MCKENZIE Page 34418 at 1718 All edits/amendments must be made on the electronic document DICTATION DATE: 03/30/191716 ARCHIVES SPECIALIST: SRAVAN 03/30/191716 RPT#: [id number] DC DATE: STATUS: ADM IN [facility] [address] [place] [address] END OF REPORT
--- NOTE | 2019-03-30 17:26 | MORECARE ---
CASE MANAGEMENT DISCHARGE SUMMARY PATIENT: DYLAN MCKENZIE UNIT: [id number] ADM DATE: 03/29/19 AGE: 28 : [birth year] SEX: F ROOM/BED: D.2233 AUTHOR: DOUG MOSQUERA PHYSICIAN: REFERRING PHYSICIAN: CHAY BANDA MD DATE OF SERVICE: 03/30/19 Discharge Plan Patient Name: DYLAN MCKENZIE Facility: [facility]:[place] : 1990 Planned Disposition: Home with Home Health Anticipated Discharge Date: Discharge Date: Expected LOS: Initial Reviewer: [email or web address] Initial Review Date: 03/30/2019 Generated: 03/30/19 6:26 pm DCPIA - Discharge Planning Initial Assessment Updated by [email or web address]: Kenisha Horn on 03/30/19 5:20 pm * Is the patient Alert and Oriented? Yes * How many steps to enter\exit or inside your home? Ramp/0 * PCP Dr. Martínez * Pharmacy [facility] * Preadmission Environment Home with Family * ADLs Total Dependent * Equipment Catheter Supplies Hospital Bed [place] Lift Nebulizer Ostomy Supplies Shower Chair Wheelchair * List name and contact numbers for known caregivers / representatives who currently or will assist patient after discharge: Nancy - mother - [phone] Mariana - 33 year old sister Eric jim?e - no phone * Verbal permission to speak to the caregivers and representatives has been obtained from the patient. Yes * Community resources currently utilized Home Health * Please name any agencies selected above. [facility] * Additional services required to return to the preadmission environment? No * Can the patient safely return to the preadmission environment? Yes * Has this patient been hospitalized within the prior 30 days at any hospital? Yes Last DP export: 03/30/19 4:17 pm Patient Name: DYLAN MCKENZIE Page 20996 at 0550 All edits/amendments must be made on the electronic document DICTATION DATE: 03/30/19 172 DOCUMENTATION NURSE: SRAVAN 03/30/19 172 RPT#: [id number] DC DATE: STATUS: ADM IN [facility] [address] [place] [address] END OF REPORT
--- NOTE | 2019-03-30 17:33 | NUR ---
PT CHANGED MIND ABOUT BEING A DNR, CALLED [facility] AND GOT CODE STATUS CHANGED TO FULL CODE. PT AGREES TO GO TO ICU.
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
--- NOTE | 2019-03-30 18:50 | NUR ---
PT RESTING IN BED, EYES OPEN. FAMILY AT BEDSIDE. TRIED CALLING REPORT TO ICU, NURSE UNAVAILABLE TO TAKE REPORT AT THIS TIME. WAS TOLD TO CALL BACK AFTER SHIFT CHANGE. PT TO TRANSFER TO ICU SOON POSSIBLE. STABLE AT THIS TIME. CALL LIGHT IN REACH. WILL CONTINUE TO MONITOR.
--- NOTE | 2019-03-30 19:48 | NUR ---
DAY NURSE CALLED REPORT TO ICU NURSE. ASSISTED RT IN TAKING PATIENT TO ICU.
--- NOTE | 2019-03-30 20:00 | NUR ---
Received patient from floor to 2312, positioned in bed and connected to monitor. Patient AO x4, calm and cooperative. S1/S2 noted Sinus Tach on telemetry, rythmic and regular. Breathing is shallow/dyspneic on Vapotherm 40L with O2 sat 97%, crackles noted bilateral upper and mid with diminished lower. Abdomen is round/soft with bowel sounds active x4, non-tender. Amos secured, dark urine with sediment noted. Paralysis/contracture noted all extremities, all pulses palpable with cap refill < 3 sec. C/O generalized pain 3/10, repositioned with stated relief. No further needs at this time, see flowsheet for details. All VSS and will continue to monitor.
--- NOTE | 2019-03-30 21:00 | NUR ---
HS meds given without difficulty, significant other at bedside for visitation. Discussed treatment plan/oxygen therapy, all questions answered to satisfaction. Repositioned for comfort, no futher needs at this time and will continue to monitor.
--- NOTE | 2019-03-30 23:15 | NUR ---
Reassessment completed per flowsheet, no changes from previous assessment. Patient resting in bed with eyes closed, repositioned for comfort. See flowsheet for details, all VSS and will continue to monitor.
[2019-03-31] VITALS (25 sets, daily range): BP systolic 114–180; BP diastolic 47–102
--- NOTE | 2019-03-31 01:10 | NUR ---
Patient sleeping in bed with eyes closed, breathing is shallow on 40L via Vapotherm with O2 sat 97%. Repositioned for comfort, no further needs and will continue to monitor.
--- NOTE | 2019-03-31 02:10 | NUR ---
Patient refused bed bath/linen change, explained need with stated understanding but continued to refuse. Sacral dressing changed / by floor RN, appears CDI from limited view. No further needs and will continue to monitor.
--- NOTE | 2019-03-31 03:15 | NUR ---
Reassessment completed per flowsheet, no changes noted from previous assessment. Patient resting in bed with eyes closed, repositioned for comfort. Breathing is shallow/labored on Vapotherm 40L with O2 sat 98%, crackles noted bilateral upper and mid with diminished lower. See flowhsheet for details, all VSS and will continue to monitor.
[2019-03-31 04:52] LABS: BASOPHILS 0.1 % (0-2); EOSINOPHILS 2.9 % (0-7); HEMATOCRIT 28.1 % (36.0-48.0); HEMOGLOBIN 8.5 g/dL (12-16); IMMATURE GRANULOCYTES 0.4 % (0-5); LYMPHOCYTES 27.8 % (15-50); MCH 23.1 pg (26.0-34.0); MCHC 30.2 g/dL (31.0-37.0); MCV 76.4 fL (80.0-100.0); MEAN PLATELET VOLUME 9.1 fL (7.4-10.4); MONOCYTES 8.7 % (2-11); NEUTROPHILS 60.1 % (40-80); PLATELET COUNT 372 10x3/uL (130-400); RBC 3.68 10x6/uL (4.00-5.40); RDW 16.7 % (11.5-14.5)
[2019-03-31 05:16] LABS: CALC OSMOLALITY 282 mosm/kg (275-300); CALCIUM 8.4 mg/dL (8.5-10.1); CARBON DIOXIDE 26.2 mmol/L (21.0-32.0); CHLORIDE - SERUM 107 mmol/L (98-107); GLUCOSE 97 mg/dL (74-106); SODIUM 143 mmol/L (136-145); UREA NITROGEN 8 mg/dL (7-18)
[2019-03-31 05:34] LABS: CREATININE - SERUM 0.3 mg/dL (0.6-1.3); eGFR NON AFRICAN AMERICAN > 90 mL/min (90-120)
--- NOTE | 2019-03-31 07:47 | NUR ---
RT -FEMALE-AT BEDSIDE RN AT BEDSIDE-OFFERED PT COMPLETE PERSONL CARE-FACIAL GROOMING WELL-POINTED OUT FACIAL HAIR AND CAN CLEAN UUP-PT REFUSED WITH VIGOROUS NOD NO-
[2019-03-31 07:48] LABS: UDS - AMPHET NEGATIVE QUAL (NEGATIVE); UDS - BARB NEGATIVE QUAL (NEGATIVE); UDS - BENZO NEGATIVE QUAL (NEGATIVE); UDS - COCAINE NEGATIVE QUAL (NEGATIVE); UDS - OPIATE NEGATIVE QUAL (NEGATIVE); UDS - PCP NEGATIVE QUAL (NEGATIVE); UDS - THC POSITIVE QUAL (NEGATIVE)
--- NOTE | 2019-03-31 08:20 | NUR ---
REVIEWED CARE PLAN AND STRONGLY AGREED WITH CURRENT PLAN OF ACTION-PLAN TO CONFIRM SPINAL CORD COMMISION INVOLVED-ADDRESS CONTINUED USE OF MARIJUANA -PT HIGH LEVEL FOR SAME ON UDS-
[2019-03-31 09:09] LABS: FOLATE (FOLIC ACID) - SERUM >20.0 ng/mL (>3.0)
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
--- NOTE | 2019-03-31 13:26 | NUR ---
1030-DR HERBERT AT BEDSIDE-PT AGREED TO CHEST JACKET AND REFUSED TURNING-REQUESTED BY DR HERBERT TO TURN-PT REFUSED-PENDING AIR ROTATION BED 1230-FAMILY AT BEDSIDE AND APPEARS BETTER SPIRITS-SEE RT FOR O2 CHANGES-WEAK COUGH EFFORT NOTED-PT REQUESTED TO HAVE"QUAD COUGHING" ASSIST-PT DESCRIBED STRONG PERCUSSION TO UPPER STOMACH AREA " PRESS IN AND SHAKE"-PRODUCTIVE STRONG COUGH FOLLOWED-SIGNIFICANT OTHER DEMONSTRATED ON PT WITH PT URGING-PT STATED MOTHER NOT ABLE TO DO WELL AND REASON WHY RESP DISTRESS [id number] -TO BE ORALLY SUCTIONED-STATED PARAMEDICS SUCTIONED NASALLY AND REFUSING SAME-STATED NOSE BLEED-NOT IN ANY DISTRESS-SAME PROCEDURE REPEATED BY SIGNIFICANT OTHER FOR PRODUCTIVE COUGH AND PT ABLE TO CLEAR AIRWAY WITHOUT DIFFICULTY-DR VERONIKA LAM
--- NOTE | 2019-03-31 14:05 | NUR ---
OSTOMY BAG [id number] PROVIDED SUPPLIES
--- NOTE | 2019-03-31 16:11 | NUR ---
DRG CHANGE DONE AT THIS TIME-PT RELUCTANT TO TURN-STATES NOT ABLE TO BREATH-RG CATH CHANGED PER PROTOCOL-NOTED LARGE AMOUNT SENTIMENT IN CATHETER TIP-RG CARE DONE-NOT ABLE TO TOLERATE HEBICLENS BATH AT THIS TIME SEVERE SOB-DIFFICULTY COUGHING UP MUCUS-WEEK COUGH
--- NOTE | 2019-03-31 17:43 | NUR ---
ENGINEERING AT BEDSIDE-SETTING UP QUAD CONTROL
--- NOTE | 2019-03-31 19:00 | NUR ---
REPORT RECIEVED, CARE ASSUMED. PT IS LAYING IN BED AT THIS TIME. NO NEEDS VOICED AT THIS TIME. INITIAL ASSESSMENT COMPLETED, SEE FLOWSHEET FOR DETAILS. PT IS ATTACHED TO ICU MONITORS AND MONITORS ARE WORKING PROPERLY AT THIS TIME. PT REQUESTED STAFF CALL HER MOM TO FIND OUT WHEN SHE WAS COMING TO VISIT AND TO BRING HER DAD AND POPTARTS WITH HER. NO SIGNS OF ACUTE DISTRESS NOTED AT THIS TIME. WILL CONTINUE TO MONITOR.
--- NOTE | 2019-03-31 21:00 | NUR ---
PT IS LAYING IN BED WITH BOYFRIEND AND MOM AT BEDSIDE. PT DENIES NEEDS AT THIS TIME. NO SIGNS OF ACUTE DISTRESS NOTED. WILL CONTINUE TO MONITOR.
--- NOTE | 2019-03-31 23:00 | NUR ---
REASSESSMENT COMPLETED, SEE FLOWSHEET FOR DETAILS. PT IS LAYING IN BED WITH EYES OPEN AT THIS TIME WATCHING TV. NO NEEDS VOICED. NO SIGNS OF ACUTE DISTRESS. WILL CONTINUE TO MONITOR.
[2019-04-01] VITALS (12 sets, daily range): BP systolic 137–173; BP diastolic 69–93
--- NOTE | 2019-04-01 01:00 | NUR ---
PT IS RESTING IN BED WITH EYES CLOSED AT THIS TIME. NO NEEDS VOICED. NO SIGNS OF ACUTE DISTRESS. WILL CONTINUE TO MONITOR.
--- NOTE | 2019-04-01 03:00 | NUR ---
REASSESSMENT COMPLETED, SEE FLOWSHEET FOR DETAILS. PT IS LAYING IN BED WITH EYES CLOSED AT THIS TIME. NO NEEDS VOICED/NOTED. NO SIGNS OF ACUTE DISTRESS. WILL CONTINUE TO MONITOR.
--- NOTE | 2019-04-01 04:16 | NUR ---
WHEN RT WENT TO ROOM TO PERFORM ABG. PT TOLD RT (EDWIN) SHE WAS NOT GOING TO ALLOW IT TO BE DONE.
--- NOTE | 2019-04-01 07:30 | NUR ---
REPORT RECEIVED. PT RESTING QUIETLY. PT IS A QUADRAPLEGIC. SHE HAS A RIGHT PICC LINE. PT HAS COLOSTOMY AND RG. SHE IS WEARING O2 AT 3L. PT HAS WOUND TO HER SACRUM THAT IS A DAILY DRESSING CHANGE. BREAKFAST TRAY TAKEN INTO ROOM. PT STATED THAT HER BOYFRIEND WOULD HELP HER EAT WHEN HE GOT UP. NO OTHER NEEDS AT THIS TIME. WILL CONTINUE TO MONITOR.
--- NOTE | 2019-04-01 09:30 | NUR ---
GOT A FAN FOR PT'S ROOM PER REQUEST. PT REFUSED HOUSEKEEPING TO COME IN AND CLEAN. HER VSS. WILL CONTINUE TO MONITOR.
--- NOTE | 2019-04-01 10:11 | NUR ---
BREATHING TREATMENT GIVEN PER PT REQUEST. PT HAD REFUSED MORNING TREATMENT BUT STARTED COUGHING AND COULDN'T STOP.
--- NOTE | 2019-04-01 11:16 | NUR ---
DR HERBERT AND DR BANDA BOTH OKAYED PT BEING TRANSFERRED TO THE FLOOR.
--- NOTE | 2019-04-01 11:35 | NUR ---
CALLED MED SURG TO GIVE REPORT ON PT. WAS PUT ON HOLD FOR ABOUT 10 MINUTES. WILL TRY AGAIN.
--- NOTE | 2019-04-01 11:45 | NUR ---
REPORT GIVEN TO ALBERTO LEY. PT GOING TO ROOM 2229.
[2019-04-01 13:16] LABS: CALCIUM 8.8 mg/dL (8.5-10.1); CARBON DIOXIDE 28.8 mmol/L (21.0-32.0); CHLORIDE - SERUM 104 mmol/L (98-107); CREATININE - SERUM 0.3 mg/dL (0.6-1.3); GLUCOSE 91 mg/dL (74-106); SODIUM 139 mmol/L (136-145); eGFR NON AFRICAN AMERICAN > 90 mL/min (90-120)
[2019-04-01 13:20] LABS: CALC OSMOLALITY 274 mosm/kg (275-300); UREA NITROGEN 4 mg/dL (7-18)
[2019-04-01 13:37] LABS: BASOPHILS 0.1 % (0-2); EOSINOPHILS 2.5 % (0-7); HEMATOCRIT 30.8 % (36.0-48.0); HEMOGLOBIN 9.4 g/dL (12-16); IMMATURE GRANULOCYTES 0.4 % (0-5); LYMPHOCYTES 22.7 % (15-50); MCH 23.4 pg (26.0-34.0); MCHC 30.5 g/dL (31.0-37.0); MCV 76.8 fL (80.0-100.0); MEAN PLATELET VOLUME 9.4 fL (7.4-10.4); NEUTROPHILS 68.3 % (40-80); PLATELET COUNT 423 10x3/uL (130-400); RBC 4.01 10x6/uL (4.00-5.40); RDW 16.3 % (11.5-14.5); WBC 17.4 10x3/uL (4.8-10.8)
[2019-04-02] VITALS: BP 129/62
[2019-04-02 04:00] VITALS: BP 109/65
[2019-04-02 08:29] VITALS: BP 168/63
[2019-04-02 08:55] LABS: BASOPHILS 0.1 % (0-2); EOSINOPHILS 3.9 % (0-7); HEMATOCRIT 31.1 % (36.0-48.0); HEMOGLOBIN 9.4 g/dL (12-16); IMMATURE GRANULOCYTES 0.3 % (0-5); LYMPHOCYTES 18.9 % (15-50); MCH 23.2 pg (26.0-34.0); MCHC 30.2 g/dL (31.0-37.0); MCV 76.8 fL (80.0-100.0); MEAN PLATELET VOLUME 9.3 fL (7.4-10.4); NEUTROPHILS 69.8 % (40-80); PLATELET COUNT 406 10x3/uL (130-400); RBC 4.05 10x6/uL (4.00-5.40); RDW 16.4 % (11.5-14.5); WBC 14.5 10x3/uL (4.8-10.8)
[2019-04-02 09:07] LABS: CALC OSMOLALITY 276 mosm/kg (275-300); CALCIUM 8.6 mg/dL (8.5-10.1); CARBON DIOXIDE 26.8 mmol/L (21.0-32.0); CHLORIDE - SERUM 105 mmol/L (98-107); CREATININE - SERUM 0.5 mg/dL (0.6-1.3); GLUCOSE 111 mg/dL (74-106); MAGNESIUM - SERUM 1.9 mg/dL (1.8-2.4); PHOSPHOROUS 3.1 mg/dL (2.5-4.9); POTASSIUM - SERUM 4.2 mmol/L (3.5-5.1); SODIUM 139 mmol/L (136-145); UREA NITROGEN 7 mg/dL (7-18); eGFR NON AFRICAN AMERICAN > 90 mL/min (90-120)
[2019-04-02 13:32] VITALS: BP 145/77
--- NOTE | 2019-04-02 13:53 | NUR ---
NUTRITION F/U CHART REVIEWED. PT TOLERATING REG DIET WITH GOOD INTAKE RECENT MEALS. ALSO ENSURE WITH MEALS. WILL CONTINUE TO PROVIDE DIET, ENSURE. MONITOR PO INTAKE. RD FOLLOWING
--- NOTE | 2019-04-02 15:15 | NUR ---
I have reviewed this patient and I concur with the Shift Assessment completed by the Licensed Practical Nurse today this shift.
[2019-04-02 18:19] VITALS: BP 118/71
--- NOTE | 2019-04-02 21:08 | NUR ---
BOYFRIEND IN ROOM. PATIENT APPEARS UPSET. MEDICATION BROUGHT IN TO PATIENT. PATIENT REFUSED MEDICATION SEVERAL TIMES.
[2019-04-02 21:13] VITALS: BP 146/66
--- NOTE | 2019-04-03 03:09 | NUR ---
PT HAS REFUSED TREATMENT FROM RESPIRATORY THERAPIST ALL NIGHT. ALSO HAS DENIED ASSISTANCE OF ANY KIND. HAS SLEPT MOST OF THE NIGHT. NO DISTRESS NOTED.
[2019-04-03 05:10] VITALS: BP 159/87
--- NOTE | 2019-04-03 08:30 | NUR ---
ALERT AND ORIENTED X 3. STATES "I'M TIRED OF PEOPLE COMING IN AND OUT. I'M THINKING ABOUT CUSSING YOU OUT." LUNGS CLEAR BILATERALLY IN ALL LOCO. HEART SOUNDS S1 AND S2 HEARD IN ALL LOCO. BOWEL SOUNDS ACTIVE X 4. SKIN INTACT WITHOUT REDNESS. QUADRAPALEGIC. DENIES NEEDS. MEDICATIONS GIVEN. FIANCE ASLEEP IN FLOOR AT BEDSIDE. BED LOW. CALL URIBE AND PERSONAL ITEMS IN REACH. WILL CONTINUE TO MONITOR.
[2019-04-03 08:45] VITALS: BP 156/86
[2019-04-03 09:50] LABS: BASOPHILS 0.1 % (0-2); HEMATOCRIT 32.9 % (36.0-48.0); HEMOGLOBIN 10.1 g/dL (12-16); IMMATURE GRANULOCYTES 0.5 % (0-5); LYMPHOCYTES 18.6 % (15-50); MCH 23.4 pg (26.0-34.0); MCHC 30.7 g/dL (31.0-37.0); MCV 76.2 fL (80.0-100.0); MEAN PLATELET VOLUME 9.1 fL (7.4-10.4); MONOCYTES 5.3 % (2-11); NEUTROPHILS 72.5 % (40-80); PLATELET COUNT 452 10x3/uL (130-400); RBC 4.32 10x6/uL (4.00-5.40); RDW 16.3 % (11.5-14.5); WBC 16.1 10x3/uL (4.8-10.8)
[2019-04-03 10:48] LABS: CALCIUM 8.7 mg/dL (8.5-10.1); CHLORIDE - SERUM 104 mmol/L (98-107); GLUCOSE 102 mg/dL (74-106); POTASSIUM - SERUM 4.2 mmol/L (3.5-5.1); SODIUM 140 mmol/L (136-145)
[2019-04-03 10:49] LABS: CALC OSMOLALITY 275 mosm/kg (275-300); CREATININE - SERUM 0.3 mg/dL (0.6-1.3); UREA NITROGEN 4 mg/dL (7-18); eGFR NON AFRICAN AMERICAN > 90 mL/min (90-120)
--- NOTE | 2019-04-03 12:03 | NUR ---
REQUESTED "REAL" SPRITE. DIETARY ORDER PLACED AND DIETARY CALLED. STATED WILL BRING.
--- NOTE | 2019-04-03 12:14 | NUR ---
ST STATED DON'T DO MODIFIED BARIUM SWALLOW ON WEEKEND BUT WILL DO BEDSIDE.
--- NOTE | 2019-04-03 12:33 | NUR ---
REQUESTED EXTRA TRAY. STATED WAS FOR SELF NOT GUEST. SPOKE WITH DIETARY STAFF ON FLOOR. STATED OK TO ORDER EXTRA TRAY FOR PATIENT. ORDER PLACED.
[2019-04-03 12:41] VITALS: BP 133/85
--- NOTE | 2019-04-03 13:48 | NUR ---
OSTOMY BAG LEAKING. BAG CHANGED. PATIENT GOWN AND BEDDING CHANGED. REQUESTED AND GIVEN ORANGE JUICE AND CRANBERRY JUICE. RG BAG EMPTIED. DENIES FURTHER NEEDS.
[2019-04-03 16:18] VITALS: BP 149/81
--- NOTE | 2019-04-03 17:55 | NUR ---
STATES FACE CONNELL WHEN SHE MOVES IT. FACE WITH REDNESS AND WARM TO TOUCH. MD NOTIFIED. STATED NOT DUE TO ANTIBIOTICS. STATED WILL EVALUATE IN AM.
--- NOTE | 2019-04-03 18:06 | NUR ---
DOUBLE ORDER CHICKEN TENDERS AND FRIES AND CHOCOLATE PIE ORDERED PER PATIENT REQUEST.
--- NOTE | 2019-04-03 19:00 | NUR ---
VANCOMYCIN TROUGH DRAWN THIS AM NOTED TO BE ELEVATED, DAYSHIFT NURSE STATES THAT VANCOMYCIN WAS RUNNING WHEN TROUGH WAS DRAWN AND ALSO RECIEVED 1700 DOSE, ORDER PLACED TO REPEAT VANCOMYCIN TROUGH AT 0030 PRIOR TO NEXT DOSE
[2019-04-03 19:51] VITALS: BP 114/63
--- NOTE | 2019-04-03 20:30 | NUR ---
ALERT RESTING IN BED, NO APPARENT DISTRESS, ENCOURAGED TO DO BREATHING TX ORDERED DUE TO SHALLOW BREATHING, STATES I WILL, SEE SHIFT ASSESSMENT, CALL GABE BALL, FRIEND AT BEDSIDE
[2019-04-04] VITALS: BP 112/57
[2019-04-04 04:54] VITALS: BP 136/76
[2019-04-04 07:47] VITALS: BP 114/66
--- NOTE | 2019-04-04 09:41 | NUR ---
ALERT AND ORIENTED WITH BREATH SOUNDS DIMINISHED TO BLQ ANTERIOR WITH O2 3L HIFLOW N/C. DENIES ANY PAIN OR DISCOMFORT WITH COLOSTOMY AND RG INTACT. BS NOTED. PT REFUSING LAB DRAW X2 THIS AM. SCD AND HEEL PROTECTORS INPLACE. QUADRIPLALEGIC WITH CONTRACTURES NOTED TO BUE. SIGNIFIGANT OTHER IN ROOM AND ENCOURAGED TO USE CALL LIGHT FOR ASSIST.
--- NOTE | 2019-04-04 11:02 | NUR ---
PATIENT TOOK AM MEDS BUT REFUSED BREATHING TREATMENTS. DR. WOO NOTIFIED OF REFUSSAL.
[2019-04-04 13:06] VITALS: BP 146/73
[2019-04-04 13:12] LABS: BASOPHILS 0.2 % (0-2); HEMATOCRIT 32.3 % (36.0-48.0); HEMOGLOBIN 9.9 g/dL (12-16); IMMATURE GRANULOCYTES 0.5 % (0-5); LYMPHOCYTES 20.6 % (15-50); MCH 23.6 pg (26.0-34.0); MCHC 30.7 g/dL (31.0-37.0); MCV 76.9 fL (80.0-100.0); MEAN PLATELET VOLUME 9.2 fL (7.4-10.4); MONOCYTES 7.1 % (2-11); NEUTROPHILS 68.6 % (40-80); PLATELET COUNT 477 10x3/uL (130-400); RDW 17.1 % (11.5-14.5); WBC 16.5 10x3/uL (4.8-10.8)
[2019-04-04 13:13] LABS: CARBON DIOXIDE 27.7 mmol/L (21.0-32.0); CHLORIDE - SERUM 104 mmol/L (98-107); GLUCOSE 113 mg/dL (74-106); SODIUM 142 mmol/L (136-145)
[2019-04-04 13:14] LABS: CALC OSMOLALITY 281 mosm/kg (275-300); CREATININE - SERUM 0.4 mg/dL (0.6-1.3); UREA NITROGEN 6 mg/dL (7-18); eGFR NON AFRICAN AMERICAN > 90 mL/min (90-120)
[2019-04-04 17:10] VITALS: BP 139/63
--- NOTE | 2019-04-04 19:24 | NUR ---
DRESSING CHANGED TO COCCYX WITH DARK KAPLAN TISSUE 25% NOTED TO COCCYX AREA WITH AREA CLEANED WITH DRESSING APPLIED. INSTRUCTED ON IMPROTANCE OF TURNING AND REPOSITIONING.
--- NOTE | 2019-04-04 20:00 | NUR ---
ALERT RESTING IN BED, FAMILY AT BEDSIDE, INSTRUCTED WITH RT PRESENT THAT SHE NEEDS TO BE MORE COMPILANT WITH BREATHING TX, SHE HAS BEEN REFUSING TODAY, AGREED TO TAKE TX. SEE SHIFT ASSESSMENT, CALL LIGHT IN REACH
[2019-04-04 20:32] VITALS: BP 101/46
[2019-04-05 01:42] VITALS: BP 115/53
[2019-04-05 05:42] LABS: BASOPHILS 0.2 % (0-2); EOSINOPHILS 2.5 % (0-7); HEMATOCRIT 30.7 % (36.0-48.0); HEMOGLOBIN 9.2 g/dL (12-16); IMMATURE GRANULOCYTES 0.9 % (0-5); LYMPHOCYTES 24.1 % (15-50); MCH 23.1 pg (26.0-34.0); MCV 76.9 fL (80.0-100.0); MEAN PLATELET VOLUME 9.4 fL (7.4-10.4); MONOCYTES 7.8 % (2-11); NEUTROPHILS 64.5 % (40-80); PLATELET COUNT 510 10x3/uL (130-400); RBC 3.99 10x6/uL (4.00-5.40); RDW 17.2 % (11.5-14.5); WBC 17.3 10x3/uL (4.8-10.8)
[2019-04-05 05:52] LABS: CALC OSMOLALITY 275 mosm/kg (275-300); CALCIUM 8.9 mg/dL (8.5-10.1); CARBON DIOXIDE 25.8 mmol/L (21.0-32.0); CHLORIDE - SERUM 105 mmol/L (98-107); CREATININE - SERUM 0.3 mg/dL (0.6-1.3); GLUCOSE 103 mg/dL (74-106); POTASSIUM - SERUM 4.3 mmol/L (3.5-5.1); SODIUM 139 mmol/L (136-145); eGFR NON AFRICAN AMERICAN > 90 mL/min (90-120)
[2019-04-05 05:53] LABS: UREA NITROGEN 8 mg/dL (7-18)
--- NOTE | 2019-04-05 07:20 | NUR ---
PT RESTING IN BED, EYES CLOSED. AROUSES TO VOICE. NO C/O PAIN. NO S/S OF ACUTE DISTRESS NOTED. ON ELECTROLYTE PROTOCOL. DECUB TO SACRAL/COCCYX, DRESSING C/D/I. SCDS AND HEEL BOOTS ON. PT QUADRAPLEGIC. ALERT AND ORIENTED. ON 3L O2, NC HIGHFLOW. RG CATH PRESENT. RIGHT UPPER ARM PICC, SL. SITE PATENT WITHOUT REDNESS OR SWELLING. PT DENIES ANYTHING FURTHER AT THIS TIME. CALL LIGHT IN REACH. WILL CONTINUE TO MONITOR.
[2019-04-05 08:39] VITALS: BP 129/62
[2019-04-05 13:13] VITALS: BP 140/74
[2019-04-05 16:46] VITALS: BP 121/73
--- NOTE | 2019-04-05 16:51 | NUR ---
I have reviewed this patient and I concur with the Shift Assessment completed by the Licensed Practical Nurse today this shift.
--- NOTE | 2019-04-05 17:33 | NUR ---
PT REFUSING TO USE HANDS FREE BLOWER CALL LIGHT. STATES SHE WILL HOLLER FOR HELP NEEDED. FRIEND IN ROOM-REMINDED HIM TO PLEASE USE GOWN AND GLOVES PT IS IN CONTACT ISOLATION.
--- NOTE | 2019-04-05 18:39 | NUR ---
PT RESTING IN BED, ALERT AND ORIENTED. PT DENIES ANYTHING FURTHER AT THIS TIME. CALL LIGHT IN REACH. WILL CONTINUE TO MONITOR.
[2019-04-05 21:13] VITALS: BP 141/62
[2019-04-06 04:00] VITALS: BP 102/51
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
--- NOTE | 2019-04-06 07:25 | NUR ---
INITIAL ROUNDING, WHITE BOARD UPDATED. PATIENT AND A SMALL CHILD ASLEEP IN THE BED, LIGHTS AND TV OFF. PATIENT IS SUPINE WITH HEEL BOOTS ON BILATERALLY. NO IVF INFUSING, O2 VIA NC IN PLACE.
--- NOTE | 2019-04-06 07:26 | NUR ---
patient very demanding with staff.yelling when call light on, educated patient that staff will be with her as soon as posable. but we do have multable patienst and may take a few minites for us to get there but we will come as soon ac posable. had no efft. if not right in as soon as light is on she will send her child out to get us or he will come to the door and call untill staff come in and takes care of what she wants at times is perla moran.she is on the light often. at times crusing staff. call light in reach.
[2019-04-06 07:49] LABS: BASOPHILS 0.1 % (0-2); HEMATOCRIT 30.5 % (36.0-48.0); IMMATURE GRANULOCYTES 0.5 % (0-5); LYMPHOCYTES 27.1 % (15-50); MCH 23.3 pg (26.0-34.0); MCHC 29.5 g/dL (31.0-37.0); MEAN PLATELET VOLUME 9.4 fL (7.4-10.4); MONOCYTES 8.6 % (2-11); NEUTROPHILS 58.7 % (40-80); PLATELET COUNT 500 10x3/uL (130-400); RBC 3.86 10x6/uL (4.00-5.40); RDW 17.3 % (11.5-14.5); WBC 13.1 10x3/uL (4.8-10.8)
[2019-04-06 08:06] LABS: CALC OSMOLALITY 277 mosm/kg (275-300); CALCIUM 8.7 mg/dL (8.5-10.1); CARBON DIOXIDE 26.8 mmol/L (21.0-32.0); CHLORIDE - SERUM 105 mmol/L (98-107); GLUCOSE 111 mg/dL (74-106); POTASSIUM - SERUM 4.2 mmol/L (3.5-5.1); SODIUM 140 mmol/L (136-145); UREA NITROGEN 6 mg/dL (7-18)
[2019-04-06 08:08] LABS: CREATININE - SERUM 0.4 mg/dL (0.6-1.3); eGFR NON AFRICAN AMERICAN > 90 mL/min (90-120)
[2019-04-06 09:30] VITALS: BP 144/73
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
[2019-04-06 12:12] LABS: HEPATITIS C ANTIBODY 0.1 S/CO RAT (0.0-0.9)
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
[2019-04-06 13:32] VITALS: BP 170/85
[2019-04-06] MEDS ORDERED: DESERYL PO (13:35)
[2019-04-06] MEDS ORDERED: PULMICORT0.5 MG/21 UPD (13:36)
[2019-04-06] MEDS ORDERED: IPRAT-ALBUT 0.5-3 ML INH (13:36)
[2019-04-06] MEDS ORDERED: MUCINEX DM ER1 EAC1 PO (13:36)
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
[2019-04-06 17:19] VITALS: BP 140/77
--- NOTE | 2019-04-06 17:26 | NUR ---
NURSE LAMINATING MACHINE OPERATOR HELPER CHINA, CALLED TO TAKE THE PICC LINE OUT. CHINA IS REQUESTING MIGUEL ÁNGEL FROM THE ER COME TO ASSIST REMOVING THE PICC
--- NOTE | 2019-04-06 17:57 | NUR ---
THE PATIENT REFUSED AGAIN AT THIS TIME TO HAVE THE DRESSING TO BUTTOCKS CHANGED, ASKING FOR SUPPLIES SO HER MOTHER CAN CHANGE IT WHEN SHE GETS HOME. ENCOURAGED THE PATIENT TO ALLOW ME TO CHANGE THE DRESSING, AND SHE CONTINUES TO REFUSE. MOTHER STATES "I WILL DO IT WHEN WE GET HOME"
--- NOTE | 2019-04-06 18:17 | NUR ---
APOLINAR DEL TORO AND ALBERTO BUNDY ARE HERE TO REMOVE THE PICC LINE
== END 2019-04-06 22:22 | disposition home health service (06) | DRG 177 ==
LOC: D.ER 07:56 → D.M3 11:59 → D.ICU 11:59 → D.MS 11:59 → D.ICU 03-30 19:49 → D.MS 04-01 12:30
PROVIDERS: Family Medicine; Internal Medicine Pulmonary Disease; ADMIT Internal Medicine Nephrology; ATTEND Internal Medicine Nephrology
DX: J15.6 Pneumonia due to other Gram-negative bacteria (principal); J96.01 Acute respiratory failure with hypoxia; G82.50 Quadriplegia, unspecified; N39.0 Urinary tract infection, site not specified; J44.1 Chronic obstructive pulmonary disease with (acute) exacerbation; N17.9 Acute kidney failure, unspecified; J15.4 Pneumonia due to other streptococci; D64.9 Anemia, unspecified; I10 Essential (primary) hypertension; E87.6 Hypokalemia; L89.159 Pressure ulcer of sacral region, unspecified stage; F32.9 Major depressive disorder, single episode, unspecified; F15.90 Other stimulant use, unspecified, uncomplicated; F12.90 Cannabis use, unspecified, uncomplicated; K21.9 Gastro-esophageal reflux disease without esophagitis; J69.0 Pneumonitis due to inhalation of food and vomit

== ENCOUNTER 2019-04-28 19:59 | Inpatient (IN) | payer MEDICAID ==
[~2019-04-28] VITALS: Ht 165.1 cm; Wt 77.3 kg
[~2019-04-28 19:59] MED LIST changes: +DESERYL PO; +IPRAT-ALBUT 0.5-3 ML INH; +MUCINEX DM ER1 EAC1 PO; +MULTI-DAY VITAM1 TAB PO; +PULMICORT0.5 MG/21 UPD
[2019-04-28 20:57] LABS: HEMATOCRIT 29.5 % (36.0-48.0); HEMOGLOBIN 9.1 g/dL (12-16); INR 1.26 (0.85-1.17); MCH 23.3 pg (26.0-34.0); MCHC 30.8 g/dL (31.0-37.0); MCV 75.4 fL (80.0-100.0); MEAN PLATELET VOLUME 9.2 fL (7.4-10.4); PLATELET COUNT 495 10x3/uL (130-400); PROTIME 15.3 SECONDS (11.6-15.0); RBC 3.91 10x6/uL (4.00-5.40); RDW 18.5 % (11.5-14.5); WBC 24.2 10x3/uL (4.8-10.8)
[2019-04-28 20:58] LABS: APTT 37.5 SECONDS (22.8-39.4)
[2019-04-28 21:01] LABS: ALBUMIN 1.7 g/dL (3.4-5.0); ALKALINE PHOSPHATASE 239 U/L (46-116); ALT (SGPT) 22 U/L (10-68); BILIRUBIN - TOTAL 0.34 mg/dL (0.2-1.3); CALC OSMOLALITY 275 mosm/kg (275-300); CALCIUM 8.1 mg/dL (8.5-10.1); CARBON DIOXIDE 24.2 mmol/L (21.0-32.0); CHLORIDE - SERUM 102 mmol/L (98-107); CREATININE - SERUM 0.4 mg/dL (0.6-1.3); GLUCOSE 132 mg/dL (74-106); POTASSIUM - SERUM 3.4 mmol/L (3.5-5.1); PROTEIN - SERUM 6.4 g/dL (6.4-8.2); SODIUM 138 mmol/L (136-145); UREA NITROGEN 6 mg/dL (7-18); eGFR NON AFRICAN AMERICAN > 90 mL/min (90-120)
[2019-04-28 21:19] LABS: COLOR YELLOW (YELLOW)
[2019-04-28 21:20] LABS: CKMB 0.3 U/L (0.0-3.6); CREATINE KINASE 129 UL (21-215); TROPONIN-I < 0.017 ng/mL (0.000-0.060)
[2019-04-28 21:20] LABS: APPEARANCE HAZY (CLEAR); BACTERIA MANY /hpf (NONE SEEN); BILIRUBIN NEGATIVE (NEGATIVE); GLUCOSE NEGATIVE (NEGATIVE); KETONE NEGATIVE (NEGATIVE); NITRITE NEGATIVE (NEGATIVE); PROTEIN 1+ mg/dL (NEGATIVE); RED CELLS - URINE 0-5 /hpf (0-5); SPECIFIC GRAVITY 1.015 (1.005-1.020); UROBILINOGEN NORMAL (NORMAL); WHITE CELLS - URINE >50 /hpf (0-5)
[2019-04-28 21:22] LABS: EPITHELIAL CELLS 0-5 /hpf (0-5)
[2019-04-28 22:09] LABS: EOSINOPHILS 5 % (0-7); LYMPHOCYTES 16 % (15-50); MONOCYTES 2 % (2-11); NEUTROPHILS 77 % (40-80); PLATELET ESTIMATE INCREASED
--- NOTE | 2019-04-28 23:43 | NUR ---
STOP ;TIME ON LR 2ND BOLUS [id number]
[2019-04-29] VITALS: BP 107/65
[2019-04-29 01:32] VITALS: BP 107/65; Ht 165.1 cm; Wt 77.3 kg
--- NOTE | 2019-04-29 02:05 | NUR ---
DR BOX NOTIFIED AND REVIEWED PT's ASSESSMENT RESULTS AND BEHAVIOR, PT IS A LOW RISK PER DR BOX. DR BOX STATED TO GIVE RESOURCES TO PT AT TIME OF DISCHARGE. NO FURTHER ORDERS AT THIS TIME, RESOURCES REVIEWED WITH PT AND SHE VERBALIZED UNDERSTANDING.
[2019-04-29 04:00] VITALS: BP 118/65
--- NOTE | 2019-04-29 06:25 | NUR ---
PT REFUSING AM LAB DRAWS
--- NOTE | 2019-04-29 07:51 | NUR ---
pt resting, eyes closed. rr even and unlabored. denies needs or pain at this time. will continue to monitor.
--- NOTE | 2019-04-29 09:26 | NUR ---
0900 Entered pt room to do wound assessment as per wound care consult and Dr. Masters's request. Greeted pt and was told "I am trying to sleep". I told pt we needed to check her wound and redress it, she again stated, "I am trying to sleep. It's 9 *&^% oclock in the morning, you can come back later". I exited the room. 1st attempt at wound consult: pt refused
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
--- NOTE | 2019-04-29 11:38 | MORECARE ---
CASE MANAGEMENT DISCHARGE SUMMARY PATIENT: DYLAN MCKENZIE UNIT: [id number] ADM DATE: 04/28/19 AGE: 28 : 88 SEX: F ROOM/BED: D.1204 AUTHOR: DOUG MOSQUERA PHYSICIAN: REFERRING PHYSICIAN: CHAY BANDA MD DATE OF SERVICE: 04/29/19 Discharge Plan Patient Name: DYLAN MCKENZIE Facility: [facility]:[place] : 1990 Planned Disposition: Left Against Medical Advice Anticipated Discharge Date: 04/29/19 Discharge Date: Expected LOS: 1 Initial Reviewer: [email or web address] Initial Review Date: 04/29/2019 Generated: 04/29/19 12:38 pm Patient Name: DYLAN MCKENZIE Page 28815 at 1138 All edits/amendments must be made on the electronic document DICTATION DATE: 04/29/191137 MARINE TOWER OPERATOR: SRAVAN 04/29/19 1138 RPT#: [id number] DC DATE: STATUS: ADM IN [facility] [address] [place] [address] END OF REPORT
== END 2019-04-29 13:16 | disposition left against medical advice (07) | DRG 871 ==
LOC: D.ER 19:59 → D.M3 21:47
PROVIDERS: Family Medicine; ADMIT Internal Medicine Nephrology; ATTEND Internal Medicine Nephrology
DX: A41.9 Sepsis, unspecified organism (principal); L89.154 Pressure ulcer of sacral region, stage 4; R53.2 Functional quadriplegia; N39.0 Urinary tract infection, site not specified; D50.9 Iron deficiency anemia, unspecified; E87.6 Hypokalemia; F41.9 Anxiety disorder, unspecified; F32.9 Major depressive disorder, single episode, unspecified; N31.9 Neuromuscular dysfunction of bladder, unspecified